=== PATIENT | female | born 1960 | race Caucasian/White ===

== ENCOUNTER 2018-09-01 08:48 | Outpatient (REF) | payer OTHER, SELFPAY ==
[2018-09-01 12:54] LABS: ALT 31 U/L (12-78); AST 15 U/L (15-37); Albumin 3.8 g/dL (3.4-5.0); Alkaline Phosphatase 73 U/L (46-116); Anion Gap 9.3 mmol/L (3-11); BUN 14 mg/dL (7-18); Bilirubin, Total 0.6 mg/dL (0.2-1.0); CO2 27.7 mmol/L (21.0-32.0); CREATININE 0.87 mg/dL (0.55-1.02); Calcium 9.3 mg/dL (8.5-10.1); Chloride 104 mmol/L (98-107); Cholesterol 229 mg/dL (50-200); Glucose 96 mg/dL (70-100); HDL Cholesterol 63 mg/dL (40-60); LDL CHOLESTEROL 152 mg/dL (<100); Potassium 4.2 mmol/L (3.5-5.1); Sodium 141 mmol/L (136-145); TSH (W/Ref FT4) 1.36 uIU/mL (0.358-3.74); Total Protein 6.7 g/dL (6.4-8.2); Triglyceride 103 mg/dL (30-150)
== END 2018-09-01 09:08 ==
LOC: NCHCN 08:48
PROVIDERS: PCP Nurse Practitioner Family; Visit Provider Nurse Practitioner Family
DX: I10 Essential (primary) hypertension (principal); E66.9 Obesity, unspecified
CPT/HCPCS: 80053; 80061; 83721; 84443

== ENCOUNTER 2019-05-21 13:20 | Observation (INO) | payer OTHER, SELFPAY ==
[2019-05-21] VITALS (9 sets, daily range): BP systolic 91–125; BP diastolic 47–77; PULSE 76–97; RESP 15–22; TEMP 36.5–37.2; O2SAT 92–99
--- NOTE | 2019-05-21 13:47 | W.ED.GENAD ---
Discharge Plan Disposition Patient Disposition: [facility] INPATIENT Condition: Good Discharge Details Chief Complaint: Abd Prob Clinical Impression: Acute appendicitis Admit Date/Time: 05/21/19 16:46 Admit Provider: Shelby Enriquez Attending Provider: Shelby Enriquez Primary Care Provider: Jessie Asencio ED Provider: Berenice Baker Discharge Data Discharge Date/Time-TO BE ENTERED AT DEPARTURE: 05/21/19 17:28 Medical Decision Making 59-year-old female with history of hypertension, hyperlipidemia, depression who presents with diffuse abdominal pain since yesterday worse and now localized to the right lower quadrant today. Last bowel movement 2 days ago which is not unusual for patient. She denies any fever. Vitals within normal limits. Lower abdominal tenderness, worse in the right lower quadrant and with positive Rovsing sign. Her abdomen is otherwise soft without guarding or rigidity. Differential diagnosis includes appendicitis, small bowel obstruction, colitis, gastroenteritis. Will place an IV, bolus IV fluids, screening labs, urinalysis and CT abdomen and pelvis. Patient declines pain medication at this time. Will give a dose of Zofran. Labs and imaging reviewed. Normal white blood cell count. Normal electrolytes. CT abdomen and pelvis notes acute appendicitis, appendicolith but no evidence of free air or abscess. Discussed with Dr. Enriquez and she came to evaluate patient. Will take patient to the operating room. Patient feels much better after Toradol and Zofran. Medical Records Medical records reviewed: Yes I reviewed the patient's medical records. Imaging Data Radiologic Study: Radiologist's impression: CT SCAN OF THE ABDOMEN AND PELVIS: CT scan of the abdomen and pelvis was performed following the uneventful administration of intravenous contrast material. There are no priors for comparison. The visualized lung bases show no acute abnormality. The dome of the liver is not included on the examination. The liver otherwise is normal in size and appearance. The portal, superior mesenteric and splenic veins are patent. The patient is status post cholecystectomy. No biliary ductal dilatation is present. The pancreas and adrenal glands are unremarkable. Calcifications are seen in the spleen consistent with prior granulomatous disease. The kidneys, ureters and urinary bladder are unremarkable. The reproductive organs are unremarkable. There is a distended appendix in the right lower quadrant measuring 1.3 cm in diameter. There is an appendicolith present. Periappendiceal inflammatory changes are seen. No focal fluid collection is seen to suggest abscess. No pneumoperitoneum is present. The remainder of the bowel is unremarkable. The aorta is of normal caliber. No significant abdominal or pelvic adenopathy is appreciated. Degenerative changes are seen in the spine. IMPRESSION: Findings consistent with acute appendicitis. No abscess or free air. Lab Data Lab results reviewed: Yes I reviewed the patient's lab results. Laboratory Tests Range/Units 05/21/19 05/21/19 05/21/19 14:01 14:06 14:06 WBC (4.4-10.8) k/cumm 9.45 RBC (4.00-5.20) m/cumm 4.96 Hgb (12.0-15.5) g/dL 14.5 Hct (36.0-46.0) % 43.9 MCV (80-95) fL 88.5 MCH (27.0-33.0) pg 29.2 MCHC (32.0-36.0) g/dL 33.0 RDW (11.7-14.6) % 13.5 Plt Count (130-400) x1000/uL 177 MPV (8.0-11.0) fL 11.4 H Immature Gran % 0.2 Neutrophils % 85.4 Lymphocytes % 8.0 Monocytes % 5.9 Eosinophils % 0.3 Basophils % 0.2 Absolute Neutrophils (1.2-6.7) k/cumm 8.06 H Absolute Lymphocytes (1.2-3.4) k/cumm 0.76 L Absolute Monocytes (0.11-0.7) k/cumm 0.56 Absolute Eosinophils (0.0-0.7) k/cumm 0.03 Absolute Basophils (0.0-0.2) k/cumm 0.02 Sodium (136-145) mmol/L 140 Potassium (3.5-5.1) mmol/L 3.5 Chloride (98-107) mmol/L 102 Carbon Dioxide (21.0-32.0) mmol/L 28.9 Anion Gap (3-11) mmol/L 9.1 BUN (7-18) mg/dL 10 Creatinine (0.55-1.02) mg/dL 0.63 Estimated GFR/1.73 m2 (mL/min/1.73m2) >= 60.00 Glucose (70-100) mg/dL 97 Calcium (8.5-10.1) mg/dL 9.2 Total Bilirubin (0.2-1.0) mg/dL 0.7 AST (15-37) U/L 5 L ALT (12-78) U/L 20 Alkaline Phosphatase (46-116) U/L 62 Total Protein (6.4-8.2) g/dL 7.2 Albumin (3.4-5.0) g/dL 3.9 Lipase (73-393) U/L 75 Urine Color Cancelled Urine Clarity Cancelled Urine pH Cancelled Ur Specific [place] Cancelled Urine Protein Cancelled Urine Ketones Cancelled Urine Blood Cancelled Urine Nitrite Cancelled Urine Bilirubin Cancelled Urine Urobilinogen Cancelled Ur Leukocyte Esterase Cancelled Urine Glucose Cancelled HPI General Mode of arrival: ambulatory. Date/Time Provider Initiated Documentation: 05/21/19 13:26. Limitations to Documentation: no limitations. Information obtained by: patient. HPI Narrative: Patient is a 59-year-old female with a history of hypertension, hyperlipidemia and depression, cholecystectomy and who presents with abdominal pain since yesterday and now worse today. Patient states the pain feels crampy and started diffusely and now localized to the right lower quadrant today. She states the pain is currently 8/10. She denies radiation of pain. She states the pain is worse with movement and better at rest. She has not taken any medication for pain. She admits to some nausea but denies any fever, vomiting, diarrhea or urinary symptoms. She states her last bowel movement was 2 days ago and normal. She states it is not unusual to have a bowel movement every few days. Related Data Home Medications Medication Instructions Recorded Confirmed bupropion HCl [Wellbutrin] 150 mg PO BID 12/16/12 05/21/19 loratadine 10 mg PO DAILY 12/16/12 05/21/19 sertraline 100 mg PO DAILY 12/16/12 05/21/19 meloxicam [Mobic] 7.5 mg PO DAILY tab-cap 12/16/17 05/21/19 aspirin [Aspirin Childrens] 81 mg PO DAILY 05/21/19 05/21/19 cetirizine 10 mg PO DAILY 05/21/19 05/21/19 cholecalciferol (vitamin D3) 5,000 unit PO DAILY 05/21/19 05/21/19 [Vitamin D3] losartan 100 mg PO DAILY 05/21/19 05/21/19 triamcinolone acetonide [Kenalog] 1 spray TOPICAL BID PRN 05/21/19 05/21/19 Allergies Allergy/AdvReac Type Severity Reaction Status Date / Time lisinopril Allergy Intermediate Unverified 01/27/18 08:10 thimerosal Allergy Intermediate Unverified 01/27/18 08:10 General Stated Complaint: Abd Prob BRENT: 3 Review of Systems Review of Systems All systems reviewed & are unremarkable except as noted in HPI and below Constitutional Reports as per HPI, Denies chills and Denies fever(s) Eyes Denies blurry vision ENT Denies dizziness, Denies sore throat and Denies throat swelling Cardiovascular Denies chest pain and Denies dyspnea Respiratory Denies cough and Denies dyspnea Gastrointestinal Reports abdominal pain, Reports constipation, Denies diarrhea, Reports nausea and Denies vomiting Genitourinary Denies hematuria and Denies dysuria Musculoskeletal Denies back pain and Denies numbness Integumentary/Breasts Denies lesions and Denies rash Neurologic Denies dizziness, Denies focal weakness and Denies numbness Allergic/Immunologic Denies throat swelling PFS Medical History Depression (Chronic) HTN (hypertension) (Chronic) Hx of hyperlipidemia (Acute) Surgical History H/O section (Chronic) Hx of cholecystectomy (Chronic) Social History Smoking/Tobacco Use Status: Never Alcohol Intake: never Drug use: Never Do you feel safe at home: Yes Do you feel safe in your relationship?: Yes Exam Const General: cooperative, healthy appearing and no acute distress HENMT Head: normal to inspection Face and sinus: normal facial exam Eyes General: appearance normal, both eyes and all related structures EOM: EOM intact bilaterally Neck Neck: normal visual inspection and No submandibular swelling Lymphatic: no lymphadenopathy noted Chest Chest: normal inspection of the chest and no tenderness Resp Effort & Inspection: normal respiratory effort and able to speak in complete sentences Auscultation: clear to auscultation bilaterally Cardio Rate: regular rate Rhythm: regular rhythm GI Inspection: normal to inspection Palpation: soft, not firm, not rigid and tender in the RLQ, suprapubicly and Rovsing's sign positive Auscultation: hypoactive bowel sounds Skin General skin exam: no rashes or lesions noted Neuro General: alert, awake and oriented x3 Cognition: normal cognition Speech: speech normal Motor: muscle tone normal throughout Sensory Exam: no sensory deficits noted Extrem General: normal to inspection, full ROM, normal capillary refill, no calf tenderness bilaterally and no edema Psych Appearance: grossly normal Mental Status: mental status grossly normal Speech and Movement: speech and movement normal Affect: normal affect Course Vital Signs Temperature 98.2 F 05/21/19 13:22 Pulse 97 H 05/21/19 13:22 Respiratory Rate 16 05/21/19 13:22 Blood Pressure 125/77 05/21/19 13:22 Pulse Oximetry 98 05/21/19 13:22 Temperature 98.2 F 05/21/19 13:22 Temperature Source Skin 05/21/19 13:22 Pulse 97 H 05/21/19 13:22 Respiratory Rate 16 05/21/19 13:22 Respiratory Effort Non-Labored 05/21/19 13:33 Blood Pressure 125/77 05/21/19 13:22 Blood Pressure Position Sitting 05/21/19 13:22 Pulse Oximetry 98 05/21/19 13:22
[2019-05-21] MEDS: Normal Saline 1,000 ML 1000 ML IV (14:07)
[2019-05-21 14:22] LABS: Abs Immature Grans 0.02 k/cumm (0.0-0.09); Absolute Basophil Count 0.02 k/cumm (0.0-0.2); Absolute Eosinophil Count 0.03 k/cumm (0.0-0.7); Absolute Lymphocyte Count 0.76 k/cumm (1.2-3.4); Absolute Monocyte Count 0.56 k/cumm (0.11-0.7); Absolute Neutrophil Count 8.06 k/cumm (1.2-6.7); Basophils % 0.2; Eosinophils % 0.3; HCT 43.9 % (36.0-46.0); HGB 14.5 g/dL (12.0-15.5); Immature Grans % 0.2; Mean Corpuscular Hemoglobin 29.2 pg (27.0-33.0); Mean Corpuscular Volume 88.5 fL (80-95); Mean Platelet Volume 11.4 fL (8.0-11.0); Monocytes % 5.9; Neutrophils % 85.4; Platelet Count 177 x1000/uL (130-400); RBC 4.96 m/cumm (4.00-5.20); RBC Distribution Width 13.5 % (11.7-14.6); White Blood Cell Count 9.45 k/cumm (4.4-10.8)
[2019-05-21] MEDS: Ondansetron 4 MG/2 ML VIAL IVP (14:25)
[2019-05-21 14:44] LABS: ALT 20 U/L (12-78); AST 5 U/L (15-37); Albumin 3.9 g/dL (3.4-5.0); Alkaline Phosphatase 62 U/L (46-116); Anion Gap 9.1 mmol/L (3-11); BUN 10 mg/dL (7-18); Bilirubin, Total 0.7 mg/dL (0.2-1.0); CO2 28.9 mmol/L (21.0-32.0); CREATININE 0.63 mg/dL (0.55-1.02); Calcium 9.2 mg/dL (8.5-10.1); Chloride 102 mmol/L (98-107); Glucose 97 mg/dL (70-100); Lipase 75 U/L (73-393); Potassium 3.5 mmol/L (3.5-5.1); Sodium 140 mmol/L (136-145); Total Protein 7.2 g/dL (6.4-8.2)
[2019-05-21] MEDS: Ketorolac 30 MG/ML VIAL (15:17)
[2019-05-21] MEDS: Omnipaque 350 MG/ML 100 ML BTL IJ (15:28)
--- NOTE | 2019-05-21 15:35 | DI.CT_ITS ---
SYMPTOMS/DIAGNOSIS: RIGHT LOWER QUADRANT ABDOMINAL PAIN; ? APPENDICITIS, SMALL BOWEL OBSTRUCTION, COLITIS OR DIVERTICULITIS CT SCAN OF THE ABDOMEN AND PELVIS: CT scan of the abdomen and pelvis was performed following the uneventful administration of intravenous contrast material. There are no priors for comparison. The visualized lung bases show no acute abnormality. The dome of the liver is not included on the examination. The liver otherwise is normal in size and appearance. The portal, superior mesenteric and splenic veins are patent. The patient is status post cholecystectomy. No biliary ductal dilatation is present. The pancreas and adrenal glands are unremarkable. Calcifications are seen in the spleen consistent with prior granulomatous disease. The kidneys, ureters and urinary bladder are unremarkable. The reproductive organs are unremarkable. There is a distended appendix in the right lower quadrant measuring 1.3 cm in diameter. There is an appendicolith present. Periappendiceal inflammatory changes are seen. No focal fluid collection is seen to suggest abscess. No pneumoperitoneum is present. The remainder of the bowel is unremarkable. The aorta is of normal caliber. No significant abdominal or pelvic adenopathy is appreciated. Degenerative changes are seen in the spine. IMPRESSION: Findings consistent with acute appendicitis. No abscess or free air. The findings were discussed with Dr. Baker of the Emergency Department on the date of the examination.
--- NOTE | 2019-05-21 16:19 | W.PM.HP.N ---
Date of service: 05/21/19 Time of Service: 16:19 Assessment and Plan (1) Appendicitis: Current visit: Yes Status: Acute I advised laparoscopic appendectomy. The risks of infection, bleeding, hernia, injury to other structure discussed. She should not lift more than 15 pounds for two weeks postop She agrees to proceed. Qualifiers: Appendicitis type: acute appendicitis Appendicitis perforation presence: without perforation History of Present Illness Narrative: Patient noted generalized abdominal tenderness last evening that has now localized to the RLQ. Nausea but no vomiting. No fever. No appetite, just had tea this morning. No change in bowel habits CT abd/pelvis reviewed - shows acute appendicitis with fecalith, no perforation Review of Systems Constitutional Denies fatigue and Denies headache(s) Eyes Denies change in vision ENT Denies headache(s) and Denies neck mass Cardiovascular Denies chest pain, Denies edema, Denies palpitations and Denies dyspnea Respiratory Denies cough, Denies dyspnea and Denies wheezing Gastrointestinal Denies hematochezia and Denies change in bowel habits Genitourinary Denies abnormal vaginal bleeding and Denies dysuria Musculoskeletal Denies joint swelling Integumentary/Breasts Denies new lesions and Denies rash Neurologic Denies confusion, Denies headache(s) and Denies focal weakness Psychiatric Reports system reviewed and no additional complaints, except as docu and Denies confusion Endocrine Denies fatigue and Denies palpitations Hematologic/Lymphatic Denies easy bleeding and Denies lymphadenopathy Allergic/Immunologic Denies wheezing FOR[facility]LY [facility], [facility] Medical History Depression (Chronic) HTN (hypertension) (Chronic) Hx of hyperlipidemia (Acute) Surgical History H/O section (Chronic) Hx of cholecystectomy (Chronic) Social History Smoking/Tobacco Use Status: Never Alcohol Intake: never Drug use: Never Do you feel safe at home: Yes Do you feel safe in your relationship?: Yes Meds Home Medications Medication Instructions Recorded Confirmed Type bupropion HCl [Wellbutrin] 150 mg PO BID 12/16/12 12/16/12 History loratadine 10 mg PO DAILY 12/16/12 12/16/12 History sertraline 100 mg PO DAILY 12/16/12 12/16/12 History meloxicam [Mobic] 7.5 mg PO DAILY tab-cap 12/16/17 History Allergies Allergy/AdvReac Type Severity Reaction Status Date / Time lisinopril Allergy Intermediate Unverified 01/27/18 08:10 thimerosal Allergy Intermediate Unverified 01/27/18 08:10 Exam Const General: healthy appearing Nutritional Appearance: well nourished Orientation: oriented x3 HENMT Head: normal to inspection Eyes Sclera: sclerae normal Pupils: PERRL Neck Neck: no lymphadenopathy Resp Effort & Inspection: normal respiratory effort Auscultation: clear to auscultation bilaterally and no wheezes Cardio Rate: regular rate Rhythm: regular rhythm GI Inspection: non-distended Palpation: soft, no hepatosplenomegaly, no hernias and tender in the RLQ Skin General skin exam: no rashes or lesions noted Neuro General: alert Cognition: normal cognition Extrem General: normal to inspection Psych Affect: normal affect Attitude: cooperative Results Labs : 05/21/19 14:06 05/21/19 14:06 Laboratory Results - last 24 hr 05/21/19 05/21/19 14:06 14:06 WBC 9.45 RBC 4.96 Hgb 14.5 Hct 43.9 MCV 88.5 MCH 29.2 MCHC 33.0 RDW 13.5 Plt Count 177 MPV 11.4 H Immature Gran % 0.2 Neutrophils % 85.4 Lymphocytes % 8.0 Monocytes % 5.9 Eosinophils % 0.3 Basophils % 0.2 Absolute Neutrophils 8.06 H Absolute Lymphocytes 0.76 L Absolute Monocytes 0.56 Absolute Eosinophils 0.03 Absolute Basophils 0.02 Sodium 140 Potassium 3.5 Chloride 102 Carbon Dioxide 28.9 Anion Gap 9.1 BUN 10 Creatinine 0.63 Estimated GFR/1.73 m2 >= 60.00 Glucose 97 Calcium 9.2 Total Bilirubin 0.7 AST 5 L ALT 20 Alkaline Phosphatase 62 Total Protein 7.2 Albumin 3.9 Lipase 75 Last Vital Signs Temp 99.0 F 05/21/19 16:17 Pulse 96 H 05/21/19 16:17 Resp 15 05/21/19 16:17 BP 111/56 L 05/21/19 16:17 Pulse Ox 98 05/21/19 16:17
[2019-05-21] MEDS: Lactated Ringers 1,000 ML 75 ML IV ×2 (17:38→20:36)
--- NOTE | 2019-05-21 18:38 | APP_PTH ---
PATIENT: Anamika Mcghee LOC: U#:[id number] AGE/SX: 59/F ROOM: RE05/21/[address]: Shelby Enriquez MD : [id number] BED: A DIS: 05/22/2019 SPEC #: [id number] RECD: 05/22/19 12:58 STATUS: VICK REQ #: [id number] GRAHAM: 05/21/19 18:[address]: Shelby Enriquez DEPT: Surgical Specimen RECD BY: Tamica Ogden ENTERED: 05/22/19 12:59 SP TYPE: Appendix OTHR DR: Jessie Asencio Tissues: 1 - APPENDIX NOT INCIDENTAL Procedures: GROSS AND MICRO LEVEL 3 Comments: [id number]
--- NOTE | 2019-05-21 20:54 | NUR.NOTE ---
Patient was admitted to the Med-Surg unit after having Lap Appendectomy done under [place]> she arrives conscious, alert, oriented, denies having any pain at the moment, but state she just wants to sleep. No adventitious breath sounds heard when lungs were auscultated. Dressings to the abdomen has stri-strips in placed and covered with bandage clean dry and intact. No abnormalities noted to the extremities. 18G to the left AC same asymptomatic. Patient made comfortable in bed, oriented to the room
[2019-05-21] MEDS: HYDROcodone 5/Acetaminophen 325 TAB PO (21:18)
[2019-05-21] MEDS: buPROPion-CR 150 MG TABCR PO (21:18)
[2019-05-22 03:28] VITALS: BP 100/59; PULSE 76; RESP 16; TEMP 36.3; O2SAT 94
[2019-05-22 07:15] VITALS: BP 100/60; PULSE 70; RESP 16; TEMP 36.8; O2SAT 96
--- NOTE | 2019-05-22 07:18 | W.PM.DS.N ---
Date of service: 05/22/19 Time of Service: 08:14 DS: Diagnosis Discharge Diagnosis (1) Appendicitis: Status: Acute Discharge Plan Disposition Patient Disposition: HOME Condition: Good Discharge Details Chief Complaint: Abd Prob Clinical Impression: Acute appendicitis Reason For Visit: Laparoscopic appendectomy Admit Date/Time: 05/21/19 16:46 Admit Provider: Shelby Enriquez Attending Provider: Shelby Enriquez Primary Care Provider: Jessie Asencio ED Provider: Berenice Baker Hospital Course Hospital Course: The patient presented with less than 24 hours of abdominal pain and underwent laparoscopic appendectomy for non-perforated appendicitis. She did well postop. Her diet was advanced, she had adequate pain control. On the morning of discharge, she was alert with clear lungs, regular heart rate, soft abdominal exam and clean incisions. Home Meds and New Rx's Prescriptions: Continued meloxicam [Mobic] 7.5 MG tablet 7.5 mg PO DAILY RF: 0 sertraline 100 MG tablet 100 mg PO DAILY RF: 0 bupropion HCl [Wellbutrin] 100 MG tablet 150 mg PO BID RF: 0 loratadine 10 MG tablet 10 mg PO DAILY RF: 0 cetirizine 10 mg Tablet 10 mg PO DAILY RF: 0 aspirin [Aspirin Childrens] 81 mg Tablet,Chewable 81 mg PO DAILY RF: 0 losartan 100 mg Tablet 100 mg PO DAILY RF: 0 triamcinolone acetonide [Kenalog] 0.147 mg/gram Aerosol 1 spray TOPICAL BID PRNRF: 0 cholecalciferol (vitamin D3) [Vitamin D3] 5,000 unit Tablet 5,000 unit PO DAILY RF: 0 Discharge Instructions Additional Instructions: The top bandage can be removed today. The steri strips will usually stick for about a week. When the edges start to curl up, they can be removed. It is okay to shower tomorrow, the water can run over the steri strips Do not swim or soak in a tub for two weeks Call for any concerns including fever, increased pain, vomiting, incision redness or drainage. Do not lift more than 15 pounds for two weeks. Walking and stairs are fine. Do not drive if on narcotic pain meds or if limited by pain. Plan for one week off of work. Stand Alone Forms: Nursing Discharge Form Referrals: Shelby Enriquez MD [ [facility] STAFF PHYSICIAN] - 06/04/19 10:00 am (Return in 10-14 days for a postoperative visit) Activity:: Do not lift more than 15 pounds for two weeks Equipment/Supplies:: No Equipment Needed Diet:: As Tolerated Discharge Orders Discharge Orders: Discharge Order (Routine); Ordered 05/22/19 Ordered By: Shelby Enriquez DS: Data Vitals/I&O Vitals and I&O: Vital Signs Temperature 97.3 F L 05/22/19 03:28 Temperature Source Tympanic 05/22/19 03:28 Pulse 76 05/22/19 03:28 Pulse Rhythm Regular 05/21/19 22:38 Respiratory Rate 16 05/22/19 03:28 Respiratory Effort Non-Labored 05/21/19 22:38 Respiratory Depth Normal 05/21/19 22:38 Respiratory Pattern Normal 05/21/19 22:38 Blood Pressure 100/59 L 05/22/19 03:28 Blood Pressure Position Sitting 05/21/19 13:22 Pulse Oximetry 94 L 05/22/19 03:28 Respiratory End-tidal CO2 39 05/21/19 19:27 Oxygen Delivery Method Room Air 05/22/19 03:28 Oxygen Flow Rate 0 05/22/19 03:28 Pain Level 0 05/21/19 20:10 Intake & Output 05/21/19 05/21/19 05/22/19 11:59 23:59 11:59 Intake Total 535 / 535 300 / 300 Output Total 750 / 750 Balance 535 / 535 -450 / -450 Weight 190 lb 0.016 oz Intake: IV 525 / 525 Oral 10 / 10 300 / 300 Output: Urine 750 / 750 Other: Urine Color Dark Heidi Urine Appearance Clear Urine Odor None Emesis Description None Voiding Methods Toilet Labs on day of discharge: Labs from last 24 hours 05/21/19 05/21/19 05/21/19 14:06 14:06 14:01 WBC 9.45 RBC 4.96 Hgb 14.5 Hct 43.9 MCV 88.5 MCH 29.2 MCHC 33.0 RDW 13.5 Plt Count 177 MPV 11.4 H Immature Gran % 0.2 Neutrophils % 85.4 Lymphocytes % 8.0 Monocytes % 5.9 Eosinophils % 0.3 Basophils % 0.2 Absolute Neutrophils 8.06 H Absolute Lymphocytes 0.76 L Absolute Monocytes 0.56 Absolute Eosinophils 0.03 Absolute Basophils 0.02 Sodium 140 Potassium 3.5 Chloride 102 Carbon Dioxide 28.9 Anion Gap 9.1 BUN 10 Creatinine 0.63 Estimated GFR/1.73 m2 >= 60.00 Glucose 97 Calcium 9.2 Total Bilirubin 0.7 AST 5 L ALT 20 Alkaline Phosphatase 62 Total Protein 7.2 Albumin 3.9 Lipase 75 Urine Color Pending Urine Clarity Pending Urine pH Pending Ur Specific [place] Pending Urine Protein Pending Urine Ketones Pending Urine Blood Pending Urine Nitrite Pending Urine Bilirubin Pending Urine Urobilinogen Pending Ur Leukocyte Esterase Pending Urine Glucose Pending [facility] Medical History Depression (Chronic) HTN (hypertension) (Chronic) Hx of hyperlipidemia (Acute) Surgical History H/O section (Chronic) Hx of cholecystectomy (Chronic) Social History Smoking/Tobacco Use Status: Never Alcohol Intake: never Drug use: Never Do you feel safe at home: Yes Do you feel safe in your relationship?: Yes
--- NOTE | 2019-05-22 07:25 | ROE_ITS ---
REPORT OF OPERATIVE PROCEDURE DATE OF PROCEDURE PREOPERATIVE DIAGNOSIS Acute appendicitis. POSTOPERATIVE DIAGNOSES Acute suppurative appendicitis. PROCEDURE Laparoscopic appendectomy. SURGEON Shelby Enriquez M.D. ANESTHESIA Local and general. INDICATIONS This is a 59-year-old woman who presented with a day of abdominal pain that had localized to the righ t lower quadrant. She was tender in that vicinity. She had a CT scan of the abdomen and pelvis that showed evidence of appendicitis. PROCEDURE DESCRIPTION The patient was placed supine on the operating table and under general anesthetic was prepped and stephanie ped sterilely. A small infraumbilical incision was made after injecting local anesthetic. The fascia was opened with the knife and the peritoneum entered bluntly with a finger. #0-Vicryl sutu res were placed on either side of the fascia and the Micah port held in place with these. A CO2 pneu moperitoneum was begun. A 5-mm port was placed into the suprapubic and right upper quadrant locations after injecting local anesthetic under direct visualization. Inspection of the abdominal wall revea led a few omental adhesions to the lower midline with a potential developing hernia here, this was no t clinically evident. Inspection of the right lower quadrant revealed significant inflammatory change. The appendix was mob ilized with gentle blunt dissection and was distended along the majority of its length, but not perfo rated. The base of the appendix was difficult to differentiate initially from small bowel and cecum d ue to some peritoneal attachment, and from the inflammation. I created an opening the mesoappendix an d divided what initially looked like the base of the appendix using the laparoscopic staplerdion with the purple load. I then took down the mesoappendix with the brown vascular load. The appen dipesh was removed through the umbilical incision in an EndoCatch bag. Inspection of the surgical site r evealed that there was a small residual stump of appendix left, this appeared fairly normal. Now kadie t the inflamed portion was removed, it was easier to dissect this free by taking down some filmy trent toneal attachments. I used another load of the stapler to divide the appendiceal stem from the cecum and also to divide the vascular supply to this small piece. This was sent in the same specimen contai ner. Inspection of the operative site revealed good hemostasis. The CO2 was released and the ports removed . The #0-Vicryl sutures were tied together at the fascia with good closure and the skin and all port sites closed with a #4-0 Monocryl subcuticular stitch. She tolerated the procedure well and was stab le to Recovery. CC: Jessie Asencio NP
[2019-05-22] MEDS: HYDROcodone 5/Acetaminophen 325 TAB PO (07:31)
[2019-05-22] MEDS: buPROPion-CR 150 MG TABCR PO (07:32)
[2019-05-22] MEDS: Sertraline 50 MG TAB 100 MG PO (07:36)
== END 2019-05-22 10:06 | disposition home or self-care (01) ==
LOC: ER 16:59 → SUR 17:28 → ER 17:28 → MS 05-22 07:23 → ER 05-25 10:42 → MS 05-25 10:42 → SUR 05-25 10:42
PROVIDERS: Admitting Provider Surgery; Emergency Provider Physician Assistant; PCP Nurse Practitioner Family; Visit Provider Surgery
PROC: 0DTJ4ZZ Resection of Appendix, Percutaneous Endoscopic Approach (ICD-10-PCS; CPT 44970; principal; 2019-05-21 15:55)
DX: K35.890 Other acute appendicitis without perforation or gangrene (principal); I10 Essential (primary) hypertension
CPT/HCPCS: 44970; 36415; 80053; 83690; 96361; 96374; 96375; 99223; 99238; 99285; 74177; 81003; 85025; 88304; 99284; G0378; J1100; J1885; J2405; J3490

== ENCOUNTER 2019-09-02 01:00 | Outpatient (CLI) | payer OTHER, SELFPAY ==
--- NOTE | 2019-09-02 07:45 | DI.MAMMO_ITS ---
EXAM: MAMMO SCREENING CLINICAL HISTORY: SCREENING, Z12.31 TECHNIQUE: Mammograms were interpreted according to the usual protocol including computer analysis w [employer] CAD system, tomosynthesis and C-view imaging. COMPARISON: 2009 through 2016. FINDINGS: The breasts are composed of heterogeneously dense fibroglandular tissue, breast density, category C. There has been a dramatic reduction in breast size due to weight loss. A circumscribed nodule is ag ain noted in the upper outer quadrant of the left breast. No suspicious masses or suspicious calcifi cations are seen. There has been no significant change. IMPRESSION: BI-RADS category 2, negative mammogram with benign findings. Yearly screening mammography is recomme nded. BI-RADS Cat 2 - Benign Findings. Breast Density - Category C - Heterogeneously dense.
== END 2019-09-02 01:20 ==
PROVIDERS: PCP Nurse Practitioner Family; Visit Provider Nurse Practitioner Family
DX: Z12.31 Encounter for screening mammogram for malignant neoplasm of breast (principal)
CPT/HCPCS: 77063; 77067

== ENCOUNTER 2019-09-15 07:39 | Outpatient (CLI) | payer OTHER, SELFPAY ==
[2019-09-15 09:12] LABS: BUN 17 mg/dL (7-18); CREATININE 0.67 mg/dL (0.55-1.02); Calcium 8.9 mg/dL (8.5-10.1); Calculated LDL 143 mg/dL; Chloride 106 mmol/L (98-107); Cholesterol 214 mg/dL (<200); Glucose 80 mg/dL (74-106); HDL Cholesterol 61 mg/dL (40-60); Potassium 4.2 mmol/L (3.5-5.1); Sodium 145 mmol/L (136-145); Triglyceride 53 mg/dL (<150)
== END 2019-09-15 07:59 ==
PROVIDERS: PCP Nurse Practitioner Family; Visit Provider Nurse Practitioner Family
DX: I10 Essential (primary) hypertension (principal); E78.00 Pure hypercholesterolemia, unspecified
CPT/HCPCS: 36415; 80048; 80061

== ENCOUNTER 2020-09-13 10:00 | Outpatient (REF) | payer OTHER, SELFPAY ==
--- NOTE | 2020-09-13 09:25 | PAPFT_PTH ---
PATIENT: Anamika Mcghee LOC: [facility] U#:[id number] AGE/SX: 60/F ROOM: RE09/13/[address]: Jessie Asencio : 1960 BED: DIS: 09/13/2020 SPEC #: [id number] RECD: 09/13/20 17:59 STATUS: VICK REQ #: [id number] GRAHAM: 09/13/20 09:[address]: Jessie Asencio DEPT: [facility] Cytology RECD BY: Tamica Ogden Tissues: 1 - CX/ENDOCX FOR PAP SMEARS Procedures: PAP THIN PREP/UVM Screening HPV DNA PROBE Comments: [id number]
== END 2020-09-13 10:20 ==
LOC: NCHCN 10:00
PROVIDERS: PCP Nurse Practitioner Family; Visit Provider Nurse Practitioner Family
DX: Z12.4 Encounter for screening for malignant neoplasm of cervix (principal); Z11.51 Encounter for screening for human papillomavirus (HPV)
CPT/HCPCS: 88142; 87624

== ENCOUNTER 2021-12-07 19:32 | Outpatient (REF) | payer OTHER, SELFPAY ==
[2021-12-07 18:58] LABS: HCT 34.1 % (36.0-46.0); HGB 11.3 g/dL (11.2-15.7); MCH 29.4 pg (27.0-33.0); MCHC 33.1 % (32.0-36.0); MCV 88.6 fL (80-95); MPV 8.7 fL (8.0-11.0); Platelet Count 403 10^3/uL (130-400); RBC 3.85 10^6/uL (3.93-5.22); RDW 11.9 % (11.7-14.6)
[2021-12-07 20:07] LABS: ALT 19 U/L (14-59); AST 18 U/L (15-37); Albumin 3.6 g/dL (3.4-5.0); Alkaline Phosphatase 64 U/L (46-116); Anion Gap 9.6 mmol/L (3-11); BUN 22 mg/dL (7-18); Bilirubin, Total 0.5 mg/dL (0.2-1.0); CO2 26.4 mmol/L (21.0-32.0); CREATININE 0.8 mg/dL (0.55-1.02); Calculated LDL 136 mg/dL (<100); Chloride 102 mmol/L (98-107); Cholesterol 205 mg/dL (<200); Glucose 99 mg/dL (74-106); HDL Cholesterol 61 mg/dL (40-60); Potassium 4.2 mmol/L (3.5-5.1); Sodium 138 mmol/L (136-145); Total Protein 6.7 g/dL (6.4-8.2); Triglyceride 42 mg/dL (<150)
== END 2021-12-07 19:33 | disposition home or self-care (01) ==
LOC: LBN 19:32
PROVIDERS: PCP Nurse Practitioner Family; Visit Provider Nurse Practitioner Family
DX: Z00.00 Encounter for general adult medical examination without abnormal findings (principal); E78.5 Hyperlipidemia, unspecified
CPT/HCPCS: 80053; 80061; 85027

== ENCOUNTER 2022-01-16 00:50 | Outpatient (CLI) | payer OTHER, SELFPAY ==
--- NOTE | 2022-01-16 | DI.MAMMO_ITS ---
Exam(s) MAMMO SCREENING EXAM: MAMMO SCREENING CLINICAL HISTORY: SCREENING FOR BREAST CANCER Z12.39. TECHNIQUE: Bilateral full field digital CC and MLO mammographic images were obtained with 3D tomosyn thesis and utilizing computer aided detection (CAD). COMPARISON: Prior mammograms were reviewed, the most recent being August 2019.. A limited left breast ultrasound performed November 2015 was also reviewed. FINDINGS: The fibroglandular pattern is again noted be moderately dense both breasts. A dominant nodule in the breast is again noted, exhibiting minimal if any significant change from roxanne or studies. Corresponds to a well-defined solid nodule on ultrasound examination seen November 2015, pr obably a fibroadenoma. There are additional asymmetric densities possible multiple noncalcified nodules presently evident in both breasts on 3D imaging. There are no malignant-appearing microcalcification groups in either breast There is no significant architectural distortion nor skin thickening-retraction. IMPRESSION: Multiple bilateral nodules now evident on 3D imaging, this in addition to the dominant nodule in the left breast which has been present on numerous prior mammograms. 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 Ad ditional spot compression views and bilateral complete breast ultrasound recommended. BI-RADS Category 0 - Assessment Incomplete: Need additional imaging evaluation Breast Density - Category C - Heterogeneously dense Breast density Category C or D implies that the patient has dense breast tissue. Dense breast tissue can make it harder to find cancer on a mammogram. Dense breast tissue is also associated with an incr eased risk of breast cancer. This information about the result of the mammogram report was provided to the patient to raise their awareness. Use this report when you speak with the patient about their risks for breast cancer, which includes their family history. At that time, you may recommend additional screening tests (Ultrasoun d or MRI) as these tests may add significant information. A negative radiographic report should not delay biopsy if a dominant or clinically suspicious mass is present. Up to ten percent of cancers are not identified on mammography. A negative report may reinforce clinical impression. Adenosis and dense breasts may obscure an underlying neoplasm. False positive reports average 6 to 10%. Patient will receive a letter notifying them of these results.
== END 2022-01-16 01:10 ==
PROVIDERS: PCP Nurse Practitioner Family; Visit Provider Nurse Practitioner Family
DX: Z12.31 Encounter for screening mammogram for malignant neoplasm of breast (principal); R92.8 Other abnormal and inconclusive findings on diagnostic imaging of breast
CPT/HCPCS: 77063; 77067

== ENCOUNTER 2022-02-06 00:38 | Outpatient (CLI) | payer OTHER, SELFPAY ==
--- NOTE | 2022-02-06 10:00 | DI.MAMMO_ITS ---
Exam(s) US BREAST LT COMPLETE US BREAST RT COMPLETE MG MAMMO SCREEN CALL BACK BI EXAM: MG MAMMO SCREEN CALL BACK BI AND BILATERAL COMPLETE BREAST ULTRASOUND CLINICAL HISTORY: F/U ABNL MAMMO, MULTIPLE BILAT NODULES, ? FIBROADENOMAS. TECHNIQUE: BILATERAL spot mammographic images obtained with 3D tomosynthesisand utilizing computer a ided detection (CAD). . Complete BILATERAL breast Ultrasound was also performed, including all 4 quadrants, the retroareolar regions, and both axillary regions COMPARISON: Prior mammograms were reviewed. This additional imaging was performed due to findings described on the recent screening mammogram of 01/17/2020. FINDINGS: DIAGNOSTIC BILATERAL MAMMOGRAM: Additional bilateral mammographic views performed todayare equivocal for new true nodules in the area s described in both breasts on the recent mammogram. BILATERAL COMPLETE BREAST ULTRASOUND: Ultrasound of the left breast performed today reveals previously present well-defined solid nodule at the 12-1 o'clock position, measuring 3 x 1 cm. This remains stable.. There are no other focal ultr asound findings in all 4 quadrants of the left breast nor significant findings in the immediate retro areolar region. The left axilla is negative for significant adenopathy. Ultrasound of the right breast performed today reveals no evidence of solid or significant cystic les ions in all 4 quadrants of the right breast nor in the immediate retroareolar region. Also no signif icant ipsilateral right axillary adenopathy. IMPRESSION: No evidence of malignancy. Stable appearance of left breast nodule. There do not appear to be ultrasound findings to correspond to the nodular densities described on the recent bilateral screening mammogram of 01/16/2022. Appropriate follow-up , as discussed by myself with the patient today, is repeat bilateral MAMMOGRAM in 6 months time, with earlier imaging if a self detected breast change is noted.. The patient was informed of these findings and recommendations prior to leaving the department today. BI-RADS Category 3 - 6 month - Probably Benign Finding: Recommend follow-up mammography in 6 months Breast Density - Category C - Heterogeneously dense Breast density Category C or D implies that the patient has dense breast tissue. Dense breast tissue can make it harder to find cancer on a mammogram. Dense breast tissue is also associated with an incr eased risk of breast cancer. This information about the result of the mammogram report was provided to the patient to raise their awareness. Use this report when you speak with the patient about their risks for breast cancer, which includes their family history. At that time, you may recommend additional screening tests (Ultrasoun d or MRI) as these tests may add significant information. A negative radiographic report should not delay biopsy if a dominant or clinically suspicious mass is present. Up to ten percent of cancers are not identified on mammography. A negative report may reinforce clinical impression. Adenosis and dense breasts may obscure an underlying neoplasm. False positive reports average 6 to 10%. Patient will receive a letter notifying them of these results.
== END 2022-02-06 00:58 ==
PROVIDERS: PCP Nurse Practitioner Family; Visit Provider Nurse Practitioner Family
DX: Z12.31 Encounter for screening mammogram for malignant neoplasm of breast (principal); R92.8 Other abnormal and inconclusive findings on diagnostic imaging of breast; N63.21 Unspecified lump in the left breast, upper outer quadrant; N64.59 Other signs and symptoms in breast
CPT/HCPCS: 76642; 77063; 77067

== ENCOUNTER 2023-03-19 13:48 | Outpatient (REF) | payer OTHER, SELFPAY ==
[2023-03-19 19:35] LABS: ALT 22 U/L (14-59); AST 12 U/L (15-37); Albumin 4.1 g/dL (3.4-5.0); Alkaline Phosphatase 52 U/L (46-116); Anion Gap 8.4 mmol/L (3-11); BUN 17 mg/dL (7-18); Bilirubin, Total 0.5 mg/dL (0.2-1.0); CO2 28.6 mmol/L (21.0-32.0); CREATININE 0.7 mg/dL (0.55-1.02); Calcium 9.7 mg/dL (8.5-10.1); Calculated LDL 115 mg/dL (<100); Chloride 105 mmol/L (98-107); Cholesterol 196 mg/dL (<200); Estimated GFR 97.12 (mL/min/1.73m2); Glucose 95 mg/dL (74-106); HDL Cholesterol 70 mg/dL (40-60); Potassium 4.6 mmol/L (3.5-5.1); Sodium 142 mmol/L (136-145); Total Protein 7.2 g/dL (6.4-8.2); Triglyceride 57 mg/dL (<150)
== END 2023-03-19 13:49 | disposition home or self-care (01) ==
LOC: NCHCN 13:48
PROVIDERS: PCP Nurse Practitioner Family; Visit Provider Nurse Practitioner Family
DX: E78.5 Hyperlipidemia, unspecified (principal)
CPT/HCPCS: 80053; 80061

== ENCOUNTER 2023-04-04 02:19 | Outpatient (CLI) | payer OTHER, SELFPAY ==
--- NOTE | 2023-04-04 | DI.MAMMO_ITS ---
Exam(s) MAMMO SCREENING EXAM: MAMMO SCREENING CLINICAL HISTORY: SCREENING, Z12.39 TECHNIQUE: Mammograms were interpreted according to the usual protocol including computer analysis w [employer] CAD system, tomosynthesis and C-view imaging. COMPARISON: 2015 through 2021 FINDINGS: The breasts are composed of heterogeneously dense fibroglandular densities, Breast Density category C . No suspicious masses or suspicious microcalcifications are seen. There are multiple stable areas of nodularity bilaterally largest in upper outer quadrant of the left breast. No skin thickening or abnormal axillary lymph nodes are seen. There has been no significant change from prior exams. IMPRESSION: BI-RADS Category 2 - Negative Mammogram with benign findings. Yearly screening mammography is recomm ended. Breast Density Category C, heterogeneously Dense. The mammogram demonstrates the patient's breast tissue is dense. Dense breast tissue is very common a nd is not abnormal but dense breast tissue can make it harder to find cancer on a mammogram. Also, de nse breast tissue may increase breast cancer risk. This information about the result of the mammogram report was provided to the patient to raise their awareness. Use this report when you speak with the patient about their risks for breast cancer, which includes their family history. At that time, you may recommend additional screening tests (Ultrasound or MRI) as they might be useful based on their r isk. A negative radiographic report should not delay biopsy if a dominant or clinically suspicious mass is present. Up to ten percent of cancers are not identified on mammography. A negative report may reinforce clinical impression. Adenosis and dense breasts may obscure an underlying neoplasm. False positive reports average 6 to 10%.
== END 2023-04-04 02:39 ==
LOC: DI 02:20
PROVIDERS: PCP Nurse Practitioner Family; Visit Provider Nurse Practitioner Family
DX: Z12.31 Encounter for screening mammogram for malignant neoplasm of breast (principal)
CPT/HCPCS: 77063; 77067

== ENCOUNTER 2023-07-18 08:51 | Day surgery (SDC) | payer OTHER, SELFPAY ==
[2023-07-18 09:45] VITALS: BP 125/80; PULSE 72; RESP 18; TEMP 37; O2SAT 95
--- NOTE | 2023-07-18 09:59 | ANES.PREOP_ITS ---
General Info Date of Service Date Performed: 07/18/23 Height: 5 ft 5 in Weight: 96.6 kg Body Mass Index (BMI): 35.4 Surgical Procedure: Operation Date: 07/18/23 10:35 Proposed Procedure Side Surgeon p Chuck Marcelino MD Meds Allergies and Home Medications Allergies Allergy/AdvReac Type Severity Reaction Status Date / Time thimerosal Allergy Intermediate bright Verified 07/18/23 09:42 red, dry, green discharge lisinopril AdvReac Intermediate cough Verified 07/18/23 09:42 Home Medication Medication Instructions Recorded bupropion HCl 100 mg tablet 150 mg PO BID 12/16/12 (Wellbutrin) loratadine 10 mg tablet 10 mg PO DAILY 12/16/12 sertraline 100 mg tablet 100 mg PO DAILY 12/16/12 cholecalciferol (vitamin D3) 125 5,000 unit PO DAILY 05/21/19 mcg (5,000 unit) tablet (Vitamin D3) bisacodyl 5 mg tablet,delayed 5 mg PO ONCE #4 tabs 07/15/23 release (Dulcolax (bisacodyl)) polyethylene glycol 3350 17 17 g PO ONCE #238 grams 07/15/23 gram/dose oral powder Current Visit Medications: Current Medications Generic Name Dose Route Start Last Admin Trade Name Freq PRN Reason Stop Dose Admin Ringer's Solution 1,000 mls @ 0 mls/hr 07/18/23 06:00 IV 08/16/23 23:59 INFUSION LEIGH ANN IV Miscellaneous Supplies 1 each 07/18/23 06:00 Iv Access IV 08/16/23 23:59 DIRECTED LEIGH ANN Sodium Chloride 0 ml 07/18/23 06:00 Normal Saline Flush 10 Ml Syr IV 08/16/23 23:59 PRN PRN Sodium Chloride 0 ml 07/18/23 06:00 Normal Saline 10 Ml Vial IJ 08/16/23 23:59 DIRECTED PRN Sterile Water 0 ml 07/18/23 06:00 Water,Injection,Sterile 10 Ml Vial IJ 08/16/23 23:59 DIRECTED PRN PFSH Medical History Medical History Right rotator cuff tendinitis (12/16/17) Appendicitis Normal colonoscopy (~2012) Rosacea Psoriasis Diverticulitis Tubular adenoma of colon Seasonal allergies Pain, joint, ankle, right Abnormal findings on diagnostic imaging of breast Actinic keratosis Hx of hyperlipidemia Depression HTN (hypertension) Surgical History Surgical History History of colonoscopy with polypectomy History of laparoscopic appendectomy 05/21/19 Dr Shelby Enriquez, [facility] H/O section Hx of cholecystectomy (~2005) Tobacco Smoking/Tobacco Use Status: Never Alcohol Alcohol Intake: current Alcohol intake frequency: holidays/special occasions only Substance Use Substance use: Never Substance use type: does not use Vital Signs and Lab Results Vital Signs Most Recent Vital Signs in EMR: Most Recent Vital Signs Temp Pulse Resp BP Pulse Ox 37 C 72 18 125/80 95 07/18/23 09:45 07/18/23 09:45 07/18/23 09:45 07/18/23 09:45 07/18/23 09:45 Lab Results Blood Type / Crossmatch: No Data to Display Complete Blood Count: No Data to Display Complete Metabolic Panel: No Data to Display Liver Function Panel: No Data to Display Coagulation Panel: No Data to Display Cardiac Panel: No Data to Display Arterial Blood Gas: No Data to Display Venous Blood Gas: No Data to Display Pancreas Panel: No Data to Display Thyroid Panel: No Data to Display Infectious Disease: No Data to Display Blood Cultures: No Data to Display Toxicology Panel: No Data to Display Anesthesia Assessment and Plan Anesthesia History Personal History: No History of Anesthesia Complications Family History: No Family History of Anesthesia Complications Exercise Tolerance Exercise Tolerance: Metabolic Equivalents>4 Pertinent Negatives Pertinent Negatives: No Symptoms of GERD, No Major Cardiovascular Symptoms or Complaints and No Major Pulmonary Symptoms or Complaints Cardiac & Pulmonary Exam Cardiac Exam: Normal S1/S2 Heart Sounds Pulmonary Exam: Clear Bilateral Breath Sounds Implantable Cardiac Device Does patient have a Pacemaker or an ICD?: No Airway Exam Known Difficult Airway: No Mallampati Class: 2 Mouth Opening: Normal (> 3cm) Thyromental Distance: Greater than 3 cm Neck Range of Motion: Full ROM Neck Circumference: Normal Teeth Condition: Normal Dentition ASA Classification ASA Score: ASA 2 Emergency Case?: No NPO Status NPO Status: NPO Clears >2 hours, Solids >8 hours Anesthesia Plan Resuscitation Status: Full Code Anesthesia Technique: General Anesthesia Airway Planned: Natural Airway Monitors Used: Standard Monitors
[2023-07-18] MEDS: Lactated Ringers 1,000 ML 80 ML IV (10:15)
[2023-07-18 10:28] VITALS: BMI 35.4
[2023-07-18 11:29] VITALS: BP 110/68; PULSE 84; RESP 16; TEMP 36.5; O2SAT 99
--- NOTE | 2023-07-18 11:34 | W.COLOREPORT ---
Date of service: 07/18/23 Time of Service: 11:35 Colonoscopy Report Procedure Description: Procedures performed: 1. Colonoscopy Preoperative diagnosis: Surveillance colonoscopy Postoperative diagnosis: Minimal/mild sigmoid diverticulosis Surgeon: Ruiz Marcelino Anesthesia: Marilu Indication for procedure: 63-year-old woman without any symptoms, prior colonoscopy normal, no family history of colon cancer due for surveillance. Findings: Normal terminal ileum.? Minimal diverticular changes in the sigmoid colon. Normal rectum. Surveillance/follow-up recommendations: 10 years Complications: None Blood loss: Minimal Prep: Excellent Specimens:? None Procedure in detail: Written consent was obtained from the patient who was in agreement with the risks, benefits and indications of the procedure.? We went to the endoscopy suite and laid the patient in left lateral decubitus position.? Anesthesia was administered which was tolerated well.? A timeout was performed and when we are all in agreement we began the procedure. Digital rectal exam and visual examination was performed and within normal limits.? A well?lubricated colonoscope was advanced without difficulty all the way to the cecum identified by the ileocecal valve, and triangular folds and appendiceal orifice.? Terminal ileum was normal.? It was then slowly withdrawn.?? Retroflexion was performed in the rectum.? The findings/interventions are noted above. The scope was then removed and the patient tolerated the procedure well and was then taken back to the PACU in hemodynamically stable condition.
--- NOTE | 2023-07-18 11:40 | W.PM.DSUDISC ---
Date of service: 07/18/23 Time of Service: 11:40 Discharge Plan Disposition Patient Disposition: Home Condition: Good Discharge Details Attending Provider: Nate Marcelino Primary Care Provider: Daphnie New Home Meds and New Rx's Prescriptions: No Action bisacodyl [Dulcolax (bisacodyl)] 5 mg tablet,delayed release (DR/EC) 5 mg PO ONCE Qty: 4 0RF Rx Instructions: Take per colonoscopy instructions provided by ordering providers office polyethylene glycol 3350 17 gram/dose powder 17 g PO ONCE Qty: 238 0RF Rx Instructions: Take per colonoscopy instructions provided by ordering providers office sertraline 100 MG tablet 100 mg PO DAILY bupropion HCl [Wellbutrin] 100 MG tablet 150 mg PO BID Patient Comments: 12.16.17 pt states she takes this BID.HE loratadine 10 MG tablet 10 mg PO DAILY cholecalciferol (vitamin D3) [Vitamin D3] 5,000 unit Tablet 5,000 unit PO DAILY Discharge Instructions Stand Alone Forms: Colonoscopy Post Instructions Activity:: Activity as Tolerated Diet:: As Tolerated DS: Diagnosis Discharge Diagnosis (1) Normal colonoscopy: Asessment and Plan: No polyps were found. Minimal diverticular changes are found in your colon today which are extremely common, benign and there is nothing you need to do about them. You should repeat another colonoscopy in 10 years.
[2023-07-18 11:59] VITALS: BP 134/76; PULSE 66; RESP 16; TEMP 36.7; O2SAT 100
--- NOTE | 2023-07-18 12:04 | W.ANESPOSTOP ---
Postoperative Evaluation Date, Time and Location Date Performed: 07/18/23 Time Performed: 12:06 Patient Location: Day Surgery Unit Vital Signs Most Recent Imported Vital Signs: Most Recent Vital Signs Temp Pulse Resp BP Pulse Ox 36.7 C 66 16 134/76 100 07/18/23 11:54 07/18/23 11:54 07/18/23 11:54 07/18/23 11:54 07/18/23 11:54 Pain Score Most Recent Pain Score: Most Recent Pain Score Pain Level 0 07/18/23 11:54 Assessment Mental Status: Awake (Alert & Oriented to Patient Baseline) Airway and Respiratory Function: Patent airway with normal (patient baseline) respiratory exam Cardiovascular Function: Hemodynamically Stable Hydration Status: Adequately Hydrated Nausea & Vomiting: No Nausea or Vomiting Pain: Pt. Denies Any Pain Peripheral Nerve Block: Patient did not receive a nerve block
== END 2023-07-18 12:11 | disposition home or self-care (01) ==
PROVIDERS: PCP Nurse Practitioner Family; Visit Provider Student in an Organized Health Care Education/Training Program
PROC: 0DJD8ZZ Inspection of Lower Intestinal Tract, Via Natural or Artificial Opening Endoscopic (ICD-10-PCS; CPT 45378; principal; 2023-07-18 10:30)
DX: Z12.11 Encounter for screening for malignant neoplasm of colon (principal); K57.30 Diverticulosis of large intestine without perforation or abscess without bleeding
CPT/HCPCS: 45378; 00123

== ENCOUNTER 2024-03-24 15:52 | Outpatient (REF) | payer OTHER, SELFPAY ==
[2024-03-24 19:03] LABS: HCT 43.7 % (36.0-46.0); HGB 14.6 g/dL (11.2-15.7); MCH 29.8 pg (27.0-33.0); MCHC 33.4 % (32.0-36.0); MCV 89 fL (80-95); MPV 9.6 fL (8.0-11.0); Platelet Count 206 10^3/uL (130-400); RDW 12.5 % (11.7-14.6); RDW-SD 41.3 fL; WBC 5.36 10^3/uL (4.4-10.8)
[2024-03-24 19:28] LABS: ALT 27 U/L (14-59); AST 19 U/L (15-37); Alkaline Phosphatase 66 U/L (46-116); Anion Gap 8.9 mmol/L (3-11); BUN 12 mg/dL (7-18); Bilirubin, Total 0.48 mg/dL (0.2-1.0); CO2 28.1 mmol/L (21.0-32.0); CREATININE 0.8 mg/dL (0.55-1.02); Calcium 9.1 mg/dL (8.5-10.1); Chloride 106 mmol/L (98-107); Estimated GFR 82.23 (mL/min/1.73m2); FREE T4 1.01 ng/dL (0.76-1.46); Glucose 89 mg/dL (74-106); Hemoglobin A1C 5.3 % (<5.7); Potassium 4.4 mmol/L (3.5-5.1); Sodium 143 mmol/L (136-145); Total Protein 6.7 g/dL (6.4-8.2)
[2024-03-24 19:39] LABS: Calculated LDL 139 mg/dL (<100); Cholesterol 237 mg/dL (<200); HDL Cholesterol 84 mg/dL (40-60); Triglyceride 72 mg/dL (<150)
== END 2024-03-24 15:53 | disposition home or self-care (01) ==
LOC: NCHCN 15:52
PROVIDERS: Visit Provider Nurse Practitioner Family
DX: E78.5 Hyperlipidemia, unspecified (principal); F32.89 Other specified depressive episodes; E66.01 Morbid (severe) obesity due to excess calories; Z68.42 Body mass index [BMI] 45.0-49.9, adult; Z13.1 Encounter for screening for diabetes mellitus
CPT/HCPCS: 80053; 80061; 85027; 83036; 84439; 84443

== ENCOUNTER 2025-03-29 18:25 | Outpatient (REF) | payer MEDICARE, SELFPAY ==
[2025-03-29 21:02] LABS: Anion Gap 9.9 mmol/L (3-11); BUN 14 mg/dL (7-18); CO2 27.1 mmol/L (21.0-32.0); CREATININE 0.8 mg/dL (0.55-1.02); Calcium 9.6 mg/dL (8.5-10.1); Chloride 105 mmol/L (98-107); Estimated GFR 81.72 (mL/min/1.73m2); Glucose 98 mg/dL (74-106); Potassium 4.2 mmol/L (3.5-5.1); Sodium 142 mmol/L (136-145)
== END 2025-03-29 18:26 | disposition home or self-care (01) ==
LOC: NCHCN 18:25
PROVIDERS: Visit Provider Student in an Organized Health Care Education/Training Program
DX: Z13.228 Encounter for screening for other metabolic disorders (principal); F32.9 Major depressive disorder, single episode, unspecified
CPT/HCPCS: 80048; 85025

== ENCOUNTER 2025-04-07 18:43 | Outpatient (REF) | payer MEDICARE, SELFPAY ==
[2025-04-07 15:29] LABS: Abs Immature Grans 0.01 10^3/uL (0.0-0.06); HCT 41.9 % (36.0-46.0); HGB 13.9 g/dL (11.2-15.7); Immature Grans % 0.2 %; MCH 29.9 pg (27.0-33.0); MCHC 33.2 % (32.0-36.0); MCV 90 fL (80-95); MPV 9.8 fL (8.0-11.0); Platelet Count 229 10^3/uL (130-400); RBC 4.65 10^6/uL (3.93-5.22); RDW 12.6 % (11.7-14.6); RDW-SD 41.5 fL; WBC 6.39 10^3/uL (4.4-10.8)
== END 2025-04-07 18:44 | disposition home or self-care (01) ==
LOC: NCHCN 18:43
PROVIDERS: Visit Provider Student in an Organized Health Care Education/Training Program
DX: F32.9 Major depressive disorder, single episode, unspecified (principal)
CPT/HCPCS: 85025

== ENCOUNTER → 2025-08-05 02:03 | Outpatient (CLI) | payer MEDICARE, SELFPAY ==
--- NOTE | 2025-08-05 | DI.MAMMO_ITS ---
Exam(s) MAMMO SCREENING EXAM: MAMMO SCREENING CLINICAL HISTORY: SCREENING,Z12.31 TECHNIQUE: Bilateral full field digital CC and MLO mammographic images were obtained with 3D tomosynthesis and utilizing computer aided detection (CAD). COMPARISON: Comparison is made with prior examinations. FINDINGS: Masses/Architectural Distortion: No suspicious masses or areas of architectural distortion are present. There are stable breast nodules. Microcalcifications: No suspicious pleomorphic-type are seen. Skin Thickening/Nipple Retraction: None. IMPRESSION: 1. No significant interval change with no specific features of malignancy noted. 2. Unless there is more urgent need, screening mammography is recommended, as per [employer] guidelines. BI-RADS Category 2 - Benign Findings Breast Density - Category C - The breast are heterogeneously dense, which may obscure small masses. Breast density Category C or D implies that the patient has dense breast tissue. Dense breast tissue can make it harder to find cancer on a mammogram. Dense breast tissue is also associated with an increased risk of breast cancer. This information about the result of the mammogram report was provided to the patient to raise their awareness. Use this report when you speak with the patient about their risks for breast cancer, which includes their family history. At that time, you may recommend additional screening tests (Ultrasound or MRI) as these tests may add significant information. A negative radiographic report should not delay biopsy if a dominant or clinically suspicious mass is present. Up to ten percent of cancers are not identified on mammography. A negative report may reinforce clinical impression. Adenosis and dense breasts may obscure an underlying neoplasm. False positive reports average 6 to 10%. Patient will receive a letter notifying them of these results.
--- NOTE | 2025-08-05 | DI.DEXA_ITS ---
Exam(s) XR DEXA BONE DENSITY W/WO JAUN EXAM: XR DEXA BONE DENSITY W/WO JAUN CLINICAL HISTORY: ASYMPTOMATIC POSTMENOPAUSAL STATUS,Z78.0 TECHNIQUE: Routine DEXA evaluation of the lumbar spine, hip, or forearm. COMPARISON: No exams were available for comparison FINDINGS: Performed on a Hologic unit. Lateral image: No compression fracture evident. Lumbar Spine total T-score: 0.8 which is a normal range. Hip total T-score:0.0 which is within normal range. Independent reading at the level of the femoral neck yields T-score of -1.1 which is in osteopenia range Forearm total T-score: -1.7 which is osteopenia range IMPRESSION: Bone mineral density measures in the osteopenia range for the hip and wrist. Fracture risk is moderate. Bone mineral density is in normal range for the lumbar spine. Fracture risk at this level is low. Note: Any spine fracture indicates 5x risk for subsequent spine fracture and 2x risk for subsequent hip fracture. World Health Organization criteria for BMD interpretation classify patients: Normal...... T- Score at or above -1.0 Osteopenic... T- Score between -1.0 and -2.5 Osteoporosis... T-Score at or below -2.5
== END ==
PROVIDERS: PCP Student in an Organized Health Care Education/Training Program; Visit Provider Student in an Organized Health Care Education/Training Program
DX: Z78.0 Asymptomatic menopausal state (principal); Z12.31 Encounter for screening mammogram for malignant neoplasm of breast
CPT/HCPCS: 77063; 77067; 77080